=== PATIENT | female | born 1935 | race Caucasian/White ===

== ENCOUNTER 2016-06-03 10:34 | Emergency (ER) | payer MEDICARE, OTHER ==
[2016-06-03 11:33] VITALS: BP 151/91
--- NOTE | 2016-06-03 11:45 | UC ---
Throat Pain/Nasal Jet HPI - HPI Summary HPI Summary: SINUS PAIN AND PRESSURE X 7 DAYS , + NASAL CONGESTION, PND, NO COUGH, NO FEVER, + CHILLS - History of Current Complaint Chief Complaint: UCRespiratory Stated Complaint: SINUS COMPLAINT Time Seen by Provider: 06/03/16 11:17 Hx Obtained From: Patient Onset/Duration: Gradual Onset, Lasting Days - 7, Still Present Cough: None Associated Signs & Symptoms: Positive: Sinus Discomfort, Nasal Discharge. Negative: Wheezing, Hoarseness, Fever - Allergies/Home Medications Allergies/Adverse Reactions: Allergies Allergy/AdvReac Type Severity Reaction Status Date / Time Amoxicillin [From Augmentin] Allergy Mild Rash Verified 06/03/16 11:33 Clarithromycin [From Biaxin] Allergy Mild Rash Verified 06/03/16 11:33 Clavulanic Acid Allergy Mild Rash Verified 06/03/16 11:33 [From Augmentin] Home Medications: Home Medications Pitavastatin Calcium [Livalo] 1 mg PO QPM 06/03/16 [History Confirmed 06/03/16] PMH/Surg Hx/FS Hx/Imm Hx Endocrine History Of: Denies: Diabetes Cardiovascular History Of: Denies: Hypertension, Congestive Heart Failure GI/ History Of: Denies: Renal Disease Psychological History Of: Denies: Anxiety, Depression, Bipolar Disorder, Schizophrenia Cancer History Of: Reports: Lung Cancer - Right lung, Breast Cancer - Bilat 99- Rt, 2012 Lt - Surgical History Surgical History: Yes Surgery Procedure, Year, and Place: Rt lumpectomy- 1998, axillary LN dissection 1998 rt,right lung wedge resection 2011, tonsillectomy, sinus surgery, Left breast lumpectomy 2011 chemo and radiation. 1998 right breast ca with lumpectomy , chemo and radiation - Family History Known Family History: Negative: Diabetes - Social History Alcohol Use: None Substance Use Type: None Smoking Status (MU): Never Smoked Tobacco - Immunization History Most Recent Tetanus Shot: Within 10 years Review of Systems Constitutional: Chills Skin: Negative Eyes: Negative ENT: Ear Ache, Nasal Discharge Respiratory: Negative Cardiovascular: Negative Gastrointestinal: Negative Genitourinary: Negative Motor: Negative All Other Systems Reviewed And Are Negative: Yes Physical Exam Triage Information Reviewed: Yes Appearance: Well-Appearing, No Pain Distress, Well-Nourished Vital Signs: Initial Vital Signs Temp 98.6 F 06/03/16 11:26 Pulse 94 06/03/16 11:26 Resp 20 06/03/16 11:26 BP 151/91 06/03/16 11:26 Pulse Ox 97 06/03/16 11:26 Vital Signs Reviewed: Yes Eyes: Positive: Conjunctiva Clear ENT: Positive: Normal ENT inspection, Hearing grossly normal, Pharyngeal erythema, Nasal congestion, Nasal drainage, TMs normal Neck: Positive: Supple, Nontender, No Lymphadenopathy Respiratory: Positive: Chest non-tender, Lungs clear, Normal breath sounds, No respiratory distress Cardiovascular: Positive: RRR, No Murmur, Pulses Normal Throat Pain/Nasal Course/Dx - Differential Dx/Diagnosis Provider Diagnoses: SINUSITIS Discharge - Discharge Plan Condition: Stable Disposition: HOME Prescriptions: Azithromycin TAB* [Zithromax TAB (Z-ROSE) 250 mg #6 tabs] 2 tab PO .TODAY, THEN 1 DAILY #1 rose Fluticasone Propionate (Nasal) [Flonase Allergy Relief] 50 mcg NA DAILY WITH MEAL #1 bottle Patient Education Materials: Sinusitis (ED) Referrals: Hedler Nielson MD [Primary Care Provider] - If Needed
== END 2016-06-03 12:07 | disposition home or self-care (01) ==
LOC: UCCORT 10:34
DX: J32.9 Chronic sinusitis, unspecified (principal); Z85.3 Personal history of malignant neoplasm of breast; Z85.118 Personal history of other malignant neoplasm of bronchus and lung; Z92.21 Personal history of antineoplastic chemotherapy; Z92.3 Personal history of irradiation; Z88.1 Allergy status to other antibiotic agents
CPT/HCPCS: 99211; G0463

== ENCOUNTER 2016-08-26 09:09 | Emergency (ER) | payer MEDICARE, OTHER ==
[2016-08-26 09:26] VITALS: BP 143/82
--- NOTE | 2016-08-26 09:51 | UC ---
Respiratory Complaint HPI - History of Current Complaint Chief Complaint: UCRespiratory Stated Complaint: SINUS COMPLAINT Time Seen by Provider: 08/26/16 09:43 Hx Obtained From: Patient ?: No Onset/Duration: Sudden Onset, Lasting Days - 3, Worse Since - since yesterday Timing: Constant Severity Initially: Mild Severity Currently: Moderate Character: Cough: Nonproductive Aggravating Factors: Nothing Alleviating Factors: Nothing Associated Signs And Symptoms: Positive: Chills, URI, Nasal Congestion, Hoarseness, Sinus Discomfort. Negative: Dyspnea, Wheezing Related History: Seasonal Allergies - Risk Factors Pulmonary Embolism Risk Factors: Negative Cardiac Risk Factors: Negative Pseudomonas Risk Factors: Negative - Allergies/Home Medications Allergies/Adverse Reactions: Allergies Allergy/AdvReac Type Severity Reaction Status Date / Time Amoxicillin [From Augmentin] Allergy Mild Rash Verified 06/03/16 11:33 Clarithromycin [From Biaxin] Allergy Mild Rash Verified 06/03/16 11:33 Clavulanic Acid Allergy Mild Rash Verified 06/03/16 11:33 [From Augmentin] Home Medications: Home Medications Loratadine [Claritin 10 MG CAP] 10 mg PO DAILY 08/26/16 [History Confirmed 08/26] PMH/Surg Hx/FS Hx/Imm Hx Endocrine History Of: Denies: Diabetes Cardiovascular History Of: Denies: Hypertension, Congestive Heart Failure GI/ History Of: Denies: Renal Disease Psychological History Of: Denies: Anxiety, Depression, Bipolar Disorder, Schizophrenia Cancer History Of: Reports: Lung Cancer - Right lung, Breast Cancer - Bilat 99- Rt, 2011 Lt - Surgical History Surgical History: Yes Surgery Procedure, Year, and Place: Rt lumpectomy- 1998, axillary LN dissection 1998 rt,right lung wedge resection 2011, tonsillectomy, sinus surgery, Left breast lumpectomy 2011 chemo and radiation. 1998 right breast ca with lumpectomy , chemo and radiation - Family History Known Family History: Positive: Hypertension Negative: Cardiac Disease, Diabetes - Social History Occupation: Retired Lives: Alone Alcohol Use: None Substance Use Type: None Smoking Status (MU): Never Smoked Tobacco Have You Smoked in the Last Year: No - Immunization History Most Recent Tetanus Shot: Within 10 years Review of Systems Constitutional: Chills ENT: Nasal Discharge Respiratory: Cough Neurological: Headache All Other Systems Reviewed And Are Negative: Yes Physical Exam Triage Information Reviewed: Yes Appearance: No Pain Distress, Well-Nourished, Ill-Appearing Vital Signs: Initial Vital Signs Temp 98.2 F 08/26/16 09:20 Pulse 104 08/26/16 09:20 Resp 16 08/26/16 09:20 BP 143/82 08/26/16 09:20 Pulse Ox 98 08/26/16 09:20 Vital Signs Reviewed: Yes Eyes: Positive: Conjunctiva Inflamed ENT: Positive: Pharyngeal erythema, TMs normal Neck exam: Normal Respiratory: Positive: Wheezing - expiratory wheeze with cough Cardiovascular Exam: Normal Musculoskeletal Exam: Normal Neurological Exam: Normal Psychological Exam: Normal Skin Exam: Normal UC Diagnostic Evaluation - Laboratory O2 Sat by Pulse Oximetry: 98 Respiratory Course/Dx - Differential Dx/Diagnosis Differential Diagnosis/HQI/PQRI: Asthma, Lower Resp Infection, Sinusitis Provider Diagnoses: Acute URI. Acute sinusitis. Acute bronchospasm Discharge - Discharge Plan Condition: Stable Disposition: HOME Prescriptions: Cefdinir [Cefdinir 300 MG CAP] 300 mg PO BID #20 cap predniSONE TAB* [Deltasone TAB*] 20 mg PO DAILY #18 tab Patient Education Materials: Upper Respiratory Infection (ED), Sinusitis (ED), Cefdinir (By mouth), Bronchospasm (ED), Prednisone (By mouth) Additional Instructions: NASAL SPRAYS AND DROPS: Afrin in the PUMP/ MIST bottle. Tilt your head down and look at the floor while doing a strong sniff with the spray. Decongestant nasal sprays and drops often give dramatic relief from congestion. They are often recommended for patients with sinus infection to assist with sinus drainage. Persons with high blood pressure should consult the doctor before using these nasal sprays. Afrin and Gustavo-Synephrine are common [id number] preparations. They should not be used for more than five days, as "rebound" congestion can occur - - the congestion flares as the drug wears off. A way of dealing with this rebound congestion problem is to medicate only one nostril each time, allowing the other nostril to recover from the medicine' s effects. When you no longer need the drug during the day, spray only one nostril each night. This helps you sleep well without severe rebound congestion. Call the doctor if you develop severe headache, palpitations, or chest pain.
== END 2016-08-26 10:06 | disposition home or self-care (01) ==
LOC: UCCORT 09:09
DX: J06.9 Acute upper respiratory infection, unspecified (principal); J01.90 Acute sinusitis, unspecified; J21.9 Acute bronchiolitis, unspecified; Z88.1 Allergy status to other antibiotic agents; Z85.118 Personal history of other malignant neoplasm of bronchus and lung; Z85.3 Personal history of malignant neoplasm of breast
CPT/HCPCS: 99212; G0463

== ENCOUNTER → 2017-04-12 01:18 | Emergency (ER) | payer MEDICARE, OTHER ==
[~2017-04-12 01:18] MED LIST: Aspirin Low Dose CHEW TAB* 81 MG PO ONE; Enoxaparin(*) 80 MG/0.8 ML SYR SUBCUT ONE; Iohexol 350* (CONTRAST) 500 ML MDV IV ONE; Ketorolac INJ* 15 MG/ML 1 ML VIAL IV PUSH ONE; Morphine INJ* 2 MG/ML 1 ML CARPUJECT IV ONE; Morphine INJ* 2 MG/ML 1 ML SYRINGE (TWO MG - NEW SYRINGE VERSION) ONE; Morphine INJ* 4 MG/ML 1 ML CARPUJECT IV ONE; NS 0.9% 1000 ML* 1,000 ML IV ONE; Ondansetron INJ* 2 MG/ML VIAL IV ONE
[2017-04-12 03:35] LABS: Hematocrit 38 % (35-47); Hemoglobin 12.6 g/dl (12.0-16.0); Mean Corpuscular HGB Conc 33 g/dl (31-36); Mean Corpuscular Hemoglobin 31 pg (27-31); Mean Corpuscular Volume 93 fL (80-97); Mean Platelet Volume 7 um3 (7.4-10.4); Red Blood Count 4.07 10^6/ul (4.0-5.4); Red Cell Distribution Width 15 % (10.5-15); White Blood Count 9.6 10^3/ul (3.5-10.8)
[2017-04-12 03:51] LABS: Albumin 3.9 g/dL (3.2-5.2); Calcium 9.4 mg/dL (8.6-10.3); EGFR African American 88.8 (>60); Globulin 3.3 g/dL (2-4); Magnesium 1.8 mg/dL (1.9-2.7); Potassium 4.4 mmol/L (3.5-5.0); Total Bilirubin 0.5 mg/dL (0.2-1.0); Total Protein 7.2 g/dL (6.4-8.9)
[2017-04-12 04:04] LABS: TSH (Thyroid Stimulating Horm) 1.89 mcIU/mL (0.34-5.60)
--- NOTE | 2017-04-12 05:38 | ED ---
Yfn Gotti Nilda, scribed for Erin Field MD on 04/12/17 at 0317 . HPI Chest Pain - HPI Summary HPI Summary: This patient is an 81 year old F presenting to [facility] accompanied by daughter with a chief complaint of constant severe left chest pain that radiates to shoulder since 1900. Symptoms were present yesterday but worsened today. The patient rates the pain 9/10 in severity. Symptoms aggravated by palpation and movement and alleviated by nothing. Patient denies fever, chills, diaphoresis, N /V, and trauma to area. PMHx includes bilateral breast CA and R-lung CA. PSHx lumpectomy of right lung and bilat breasts. - History of Current Complaint Chief Complaint: EDShoulderClavicleInj Time Seen by Provider: 04/12/17 02:39 Hx Obtained From: Patient Onset/Duration: Started Hours Ago, Still Present Timing: Constant Current Severity: Severe Pain Intensity: 9 Pain Scale Used: 0-10 Numeric Chest Pain Location: Left Lateral Chest Pain Radiates: Yes Chest Pain Radiates To:: Shoulder Character: Sharp/Stabbing Aggravating Factor(s): Movement, Other: - palpation Alleviating Factor(s): Nothing Associated Signs and Symptoms: Positive: Other: - denies fever, chills, diaphoresis, N/V, and trauma to area - Allergy/Home Medications Allergies/Adverse Reactions: Allergies Allergy/AdvReac Type Severity Reaction Status Date / Time Amoxicillin [From Augmentin] Allergy Mild Rash Verified 04/12/17 03:33 Clarithromycin [From Biaxin] Allergy Mild Rash Verified 04/12/17 03:33 Clavulanic Acid Allergy Mild Rash Verified 04/12/17 03:33 [From Augmentin] PMH/Surg Hx/FS Hx/Imm Hx Endocrine/Hematology History: Denies: Hx Diabetes, Hx Systemic Lupus Erythematosus Cardiovascular History: Reports: Other Cardiovascular Problems/Disorders - HYPERLIPIDEMIA - CONTROL WITH MEDICATION Denies: Hx Congestive Heart Failure, Hx Hypertension Respiratory History: Reports: Hx Lung Cancer - Right lung GI History: Denies: Other GI Disorders History: Denies: Hx Dialysis, Hx Renal Disease Musculoskeletal History: Denies: Hx Rheumatoid Arthritis, Other Musculoskeletal History Sensory History: Reports: Hx Contacts or Glasses - READING GLASSES Denies: Hx Hearing Aid Opthamlomology History: Reports: Hx Contacts or Glasses - READING GLASSES Psychiatric History: Denies: Hx Anxiety, Hx Attention Deficit Hyperactivity Disorder, Hx Autism, Hx Eating Disorder, Hx Oppositional Vevay Disorder, Hx Depression, Hx Panic Disorder, Hx Post Traumatic Stress Disorder, Hx Inpatient Treatment, Hx Community Mental Health Tx, Hx Schizophrenia, Hx Bipolar Disorder, Hx Suicide Attempt, Hx Substance Abuse, Other Psychiatric Issues/Disorders - Cancer History Cancer Type, Location and Year: R & L breast, R lung Hx Chemotherapy: Yes - 1998 + [address] chi Hx Radiation Therapy: Yes - 1998 Rt, 2011 Lt - Surgical History Surgery Procedure, Year, and Place: Rt lumpectomy- 1998, axillary LN dissection 1998 rt,right lung wedge resection 2011, tonsillectomy, sinus surgery, Left breast lumpectomy 2011 chemo and radiation. 1998 right breast ca with lumpectomy , chemo and radiation Hx Anesthesia Reactions: No Infectious Disease History: No Infectious Disease History: Reports: Hx Shingles Denies: Hx Clostridium Difficile, Hx Hepatitis, Hx Human Immunodeficiency Virus (HIV), Hx Tuberculosis, Traveled Outside the [place] in Last 30 Days - Family History Known Family History: Positive: Hypertension Negative: Cardiac Disease, Diabetes - Social History Alcohol Use: None Substance Use Type: Reports: None Smoking Status (MU): Never Smoked Tobacco Have You Smoked in the Last Year: No Review of Systems Negative: Fever, Chills, Skin Diaphoresis Positive: Chest Pain Negative: Vomiting, Nausea Positive: Other - left shoulder pain; negative trauma All Other Systems Reviewed And Are Negative: Yes Physical Exam - Summary Physical Exam Summary: GENERAL: Patient is a well-developed and nourished female who is lying comfortable in the stretcher. Patient is not in any acute respiratory distress. HEAD AND FACE: No signs of trauma. No ecchymosis, hematomas or skull depressions. No sinus tenderness. EYES: PERRLA, EOMI x 2, No injected conjunctiva, no nystagmus. EARS: Hearing grossly intact. Ear canals and tympanic membranes are within normal limits. MOUTH: Oropharynx within normal limits. NECK: Supple, trachea is midline, no adenopathy, no JVD, no carotid bruit, no c- spine tenderness, neck with full ROM. CHEST: Symmetric, tenderness at palpation of left chest wall LUNGS: Clear to auscultation bilaterally. No wheezing or crackles. CVS: Regular rate rhythm, tachycardic, S1 and S2 present, no murmurs or gallops appreciated. ABDOMEN: Soft, non-tender. No signs of distention. No rebound no guarding, and no masses palpated. Bowel sounds are normal. EXTREMITIES: FROM in all major joints, no edema, no cyanosis or clubbing. NEURO: Alert and oriented x 3. No acute neurological deficits. Speech is normal and follows commands. SKIN: Dry and warm Triage Information Reviewed: Yes Vital Signs On Initial Exam: Initial Vitals Temp Pulse Resp BP Pulse Ox 98.5 F 119 20 155/96 94 04/12/17 01:37 04/12/17 01:37 04/12/17 01:37 04/12/17 01:37 04/12/17 01:37 Vital Signs Reviewed: Yes Diagnostics - Vital Signs Vital Signs Temp Pulse Resp BP Pulse Ox 04/12/17 01:37 98.5 F 119 20 155/96 94 - Laboratory Result Diagrams: 04/12/17 03:25 04/12/17 03:25 Lab Statement: Any lab studies that have been ordered have been reviewed, and results considered in the medical decision making process. - Radiology CXR Radiology Interpretation Completed By: ED Physician - NAD. - CT CTA Chest CT Interpretation Completed By: Radiologist - CTA Chest, per radiologist, reveals right lower lobe and left lower lobe pulmonary emboli with probable left lower lobe infarct. No saddle embolism. ED Physician has reviewed this report and agrees. - EKG 0238 Cardiac Rate: Tachycardia EKG Rhythm: Sinus Tachycardia - 111 bpm EKG Interpretation: nml axis, nml interval, no acute ischemic change. Re-Evaluation - Re-Evaluation First Eval Re-Evaluation Time: 05:28 Comment: Review lab results with patient and plan to admit. Patient is still in pain. Chest Pain Course/Dx - Course Assessment/Plan: This patient is an 81 year old F presenting to [facility] accompanied by daughter with a chief complaint of constant severe left chest pain that radiates to shoulder since 1900. Symptoms were present yesterday but worsened today. The patient rates the pain 9/10 in severity. Symptoms aggravated by palpation and movement and alleviated by nothing. Patient denies fever, chills, diaphoresis, N/V, and trauma to area. PMHx includes bilateral breast CA and R-lung CA. PSHx lumpectomy of right lung and bilat breasts. Pending EKG and CXR. EKG reveals sinus tachycardia, 111 bpm, nl axis, nl interval, no ischemic changes. CXR reveals NAD. CTA Chest, per radiologist, reveals right lower lobe and left lower lobe pulmonary emboli with probable left lower lobe infarct. No saddle embolism. ED Physician has reviewed this report and agrees. [[id number]] Dr. Warner (hospitalist) accepts pt for admission. Pt is stable and will be admitted with a diagnosis of bilateral PE. - Diagnoses Provider Diagnoses: Bilateral pulmonary embolism - Provider Notifications Discussed Care Of Patient With: Jason Warner - hospitalist Time Discussed With Above Provider: 05:35 Instructed by Provider To: Admit As Inpatient Discharge - Discharge Plan Condition: Stable Disposition: ADMITTED TO [facility] Referrals: Helder Nielson MD [Primary Care Provider] - The documentation as recorded by the Yfn hoover Nilda accurately reflects the service I personally performed and the decisions made by , Erin Field MD.
[2017-04-12 09:35] VITALS: BP 114/61
--- NOTE | 2017-04-12 09:38 | RAD ---
INDICATION: Chest pain COMPARISON: Most recent comparison chest x-rays June 19, 2012 TECHNIQUE: Single AP portable view of the chest was obtained with the patient apparently rotated towards her right. FINDINGS: Image quality is compromised due to the relative inferiority of a portable chest x-ray. There are stable surgical clips overlying the right axilla. The heart and mediastinum exhibit normal size and contour. The lungs are grossly clear. There is no evidence of a large pleural effusion. Visualized bones are normal for the patient's age. IMPRESSION: No radiographic evidence for acute cardiopulmonary abnormality on this portable chest x-ray.
--- NOTE | 2017-04-12 10:38 | RAD ---
INDICATION: Chest and left shoulder pain. COMPARISON: Similar CT of the chest dated March 18, 2017 TECHNIQUE: Axial source images were acquired following the administration of 69 mL of Omnipaque [address] angiographic technique. Coronal and sagittal reconstructed images were constructed and reviewed. FINDINGS: There are nonocclusive filling defects involving the right lower and right middle lobe pulmonary arteries extending into the intermedius segment of the pulmonary artery (axial image 99 through 143). There is no definite thrombus in the right or left mainstem pulmonary arteries. There is a segmental filling defect at the left lower lobe (axial image 124). There is a pleural-based density at the right upper lobe as well as hypoventilatory changes at the bilateral lung bases, worse on the left than the right. The heart is normal in size. There is no evidence of pericardial effusion. There is no evidence of aortic aneurysm or dissection. There is no mediastinal, hilar, or axillary lymphadenopathy. Multilevel degenerative change of the thoracic spine includes loss of intervertebral disc height as well as vacuum disc phenomenon at T12/L1. Limited views of the upper abdomen show no abnormalities. IMPRESSION: 1. Lobar pulmonary embolism involving the right middle and lower lobes as well as segmental pulmonary embolism involving the left lower lobe. 2. Additional chronic and degenerative changes described in the body the report.
--- NOTE | 2017-04-12 11:43 | HP ---
HISTORY AND PHYSICAL: DATE OF ADMISSION: 04/12/17 IDENTIFICATION: An 81-year-old female with a history of breast cancer and lung cancer, no active malignancy. Seen by Dr. Coyne 2 weeks ago for annual followup. CHIEF COMPLAINT: Left-sided shoulder pain. HISTORY OF PRESENT ILLNESS: An 81-year-old female with history of multiple malignancies, but generally has been doing quite well. She had sever URI and bronchitis, had been in bed an chair for 2 weeks. She developed acute left shoulder pain in the afternoon on 04/11/17. By 8:00 p.m., it was a fairly severe pain. She took Advil and it did not go away. Initially thought it was because of how she slept that she moved her shoulder, but then after the Advil failed, she called her daughter. She came in to the emergency room. On presentation, she had a hemoglobin of 12.6 consistent with her baseline, chemistries unremarkable with exception of slightly elevated glucose of 122, creatinine 0.8 and BUN of 20, normal liver function test. Vital signs on presentation, she was afebrile; heart rate of 119, went down to 86; O2 saturation of 94% on presentation, up to 98% on oxygen 2 L; blood pressure 131/ 70. She had a CT angiogram that showed 2 segmental pulmonary emboli, right and left, and small left-sided area of infarction. She got Lovenox 80 mg x1 and her pain is resolved. Overnight, she did well in the emergency room and has been resting comfortably. Denies fevers, chills, shortness of breath, or hemoptysis, and otherwise is feeling well. She walked around the emergency room this morning on room air, has saturation of 92%, no chest pain, no shortness of breath. PAST MEDICAL HISTORY: 1. Bronchitis 3 weeks ago, treated with antibiotics. 2. Hyperlipidemia. 3. Osteoporosis. 4. Left-sided breast cancer, 1998, treated with chemotherapy and radiation as well as lumpectomy and axillary lymph node dissection. 5. Lung cancer, 2011. IIA disease, treated with wedge resection. 6. Left breast cancer, 2011, T1b with lymphovascular invasion associated DCIS. PAST SURGICAL HISTORY: Lung resection, bilateral breast surgery. MEDICATIONS AT HOME: 1. Vitamin D 2000 units daily. 2. Livalo 1 tablet daily. 3. Prednisone 10 mg p.r.n. ALLERGIES: AUGMENTIN and BIAXIN. FAMILY HISTORY: Sister with breast cancer at age 61. No family history of thrombosis. SOCIAL HISTORY: In the emergency room with her daughter. She is , never smoker. No history of drinking. Active and fully functional at home. REVIEW OF SYSTEMS: Constitutional: She had suffered from bronchitis and respiratory symptoms for 3 weeks, sedentary. Allergies/Immunologic: Rash to AUGMENTIN and BIAXIN. HEENT: Negative. Endocrine: Negative but mildly elevated sugar in the emergency room. Hematologic/Lymphatic: No bruising. Breasts: Bilateral breast cancer, has not noted any new masses or lesions. Respiratory: Shoulder pain, but no shortness of breath, cough, hemoptysis. Cardiovascular: No palpitations or chest pain. Gastrointestinal: Eating reasonably well recently. : She had incontinence with coughing, with a recent URI symptoms. Musculoskeletal: Negative. Skin: Negative. Neurologic: Negative. Psychiatric: Negative. PHYSICAL EXAMINATION GENERAL: No distress. VITAL SIGNS: Temperature 98.5, BP 131/70, pulse 96, respirations 18, O2 sat 98 % on 2 L, 95% on room air at rest, 92% on room air with exertion. HEENT: Mucosa moist. No lesions. No cervical or supraclavicular lymphadenopathy. LUNGS: Clear to auscultation bilaterally. No pain with deep inspiration. HEART: Regular rate and rhythm. S1, S2. No murmurs, rubs, or gallops. ABDOMEN: Nontender, nondistended. Good bowel sounds. No hepatosplenomegaly. EXTREMITIES: Good pulses x4. No edema. NEUROLOGIC: Grossly nonfocal. DIAGNOSTIC STUDIES/LAB DATA: As noted above. CT scan was personally reviewed. ASSESSMENT AND PLAN: An 81-year-old female with remote history of both breast and lung cancer, but has been cancer free of late. Presents with a pulmonary embolus that occurred following episode of severe bronchitis and long periods of immobilization secondary to fatigue. It is a pulmonary embolus with a moderate transient risk factor. 1. At this time, she is hemodynamically stable and improved symptoms with one shot of Lovenox. I think it is reasonable for her to be treated as an outpatient. I am going to send her home this morning on Xarelto 15 mg p.o. b.i.d with food. We will follow up in 24 hours in the clinic to reevaluate her chest pain and breathing. She has Lovenox around 5:00 a.m. She will take her first Xarelto at lunch and then the second one at bedtime tonight. 2. She will continue all other medications unchanged, but do not take any more p.r.n. Advil. Tylenol is okay for pain. 3. We discussed that this pulmonary embolus will heal over 6 weeks to 3 months. The duration of anticoagulation can be significantly longer, as she is at risk for additional thrombi. 4. No evidence of recurrent cancer at this time, although the pulmonary embolus make us suspicious. On the CT scan of her chest, there is no evidence of lung cancer, will send her for an A/P CT as an outpatient. 5. She will call me after discharge with any additional questions or concerns, [phone]. [id number]/[facility] #: [id number] TOM
== END | disposition home or self-care (01) ==
LOC: ED 01:18
DX: I26.99 Other pulmonary embolism without acute cor pulmonale (principal); R50.9 Fever, unspecified
CPT/HCPCS: 36415; 71010; 71275; 80053; 82550; 82553; 83605; 83735; 83880; 84443; 84484; 85025; 85379; 85610; 85730; 93005; 96374; 96375; 99282; A9270-GY; J1650; J1885; J2270; J2405; Q9967

== ENCOUNTER 2019-07-23 08:09 | Day surgery (SDC) | payer MEDICARE, OTHER ==
[~2019-07-23 08:09] MED LIST changes: +Acetaminophen TAB* 325 MG PO PRN; -Aspirin Low Dose CHEW TAB* 81 MG PO ONE; +Buffered Lidocaine 1% SYRIN* 1 ML/SYRINGE INTRADERM ONE; -Enoxaparin(*) 80 MG/0.8 ML SYR SUBCUT ONE; -Iohexol 350* (CONTRAST) 500 ML MDV IV ONE; -Ketorolac INJ* 15 MG/ML 1 ML VIAL IV PUSH ONE; -Morphine INJ* 2 MG/ML 1 ML CARPUJECT IV ONE; -Morphine INJ* 2 MG/ML 1 ML SYRINGE (TWO MG - NEW SYRINGE VERSION) ONE; -Morphine INJ* 4 MG/ML 1 ML CARPUJECT IV ONE; -NS 0.9% 1000 ML* 1,000 ML IV ONE; -Ondansetron INJ* 2 MG/ML VIAL IV ONE
[2019-07-23] MEDS ORDERED: Midazolam* 1 MG/ML 2 ML VIAL (2 MG) ONE ×2 (08:50→09:24)
[2019-07-23] MEDS ORDERED: Phenylephrine OPHTH SOL 2.5%* 2 ML ONE (09:14)
[2019-07-23] MEDS ORDERED: Ketorolac 0.5% OPHTH (NF) 0.5 % 5 ML BTL ONE (09:14)
[2019-07-23] MEDS ORDERED: Cyclopentolate 1% OPTH.SOL* 2 ML BTL ONE (09:14)
[2019-07-23] MEDS ORDERED: Povidone Iodine 5% OPTH* 30 ML BTL ONE (09:14)
[2019-07-23] MEDS ORDERED: Neomycin/Polymy/Dex OPTH.SUSP* MAXITROL 0.1% 5 ML ONE (09:14)
[2019-07-23] MEDS ORDERED: Lidocaine 1% MPF ** 5 ML VIAL ONE (09:14)
[2019-07-23] MEDS ORDERED: Lidocaine 2% w/ EPI 1:200,000* 20 ML SDV VIAL ONE (09:14)
[2019-07-23] MEDS ORDERED: Proparacaine 0.5% OPHTH.SOL* 15 ML BTL ONE (09:14)
[2019-07-23] MEDS ORDERED: acetaZOLAMIDE TAB* 250 MG ONE (09:14)
[2019-07-23 10:05] VITALS: BP 127/74
--- NOTE | 2019-07-23 12:47 | OP ---
DATE OF OPERATION: 07/23/2019. DATE OF : 1935. SURGEON: Moises Villasenor M.D. PREOPERATIVE DIAGNOSIS: Cataract right eye. POSTOPERATIVE DIAGNOSIS: Cataract right eye. OPERATIVE PROCEDURE: Extracapsular cataract extraction with intraocular lens implant right eye. PROCEDURE: The patient was brought to the operating room after being given 1/2% Alcaine with epineph rine drops in the preoperative area. The eye was prepped and draped in the usual sterile fashion. S terile drape and eyelid speculum were placed. Again, topical 1/2% Alcaine with epinephrine was given . A paracentesis incision was made at the 9 o'clock position with the No.75 blade. Clear cornea inc ision 2.2 x 2.2-mm was created at the 12 o'clock position starting at the anterior limbus using the 2 .2-mm keratome. The anterior chamber was irrigated with 0.4 mL of 1% non-preservative intracameral l idocaine and filled with DisCoVisc. A capsulorrhexis was completed using the cystotome and the Utrat a forceps. Hydrodissection was performed with balanced salt solution. The lens nucleus was removed w ith the Phacoemulsification handpiece without incident. Cortex was removed with the irrigation-aspir ation handpiece. The capsular bag was re-inflated using DisCoVisc and an SN60WF 23.5 implant was ins erted with the shooter. The irrigation-aspiration handpiece was used to remove all residual DisCoVis c. The eye was refilled with balanced salt solution and the wound checked and found to be watertight . Topical Maxitrol drops were given. [id number]/[facility] #: [id number]
== END 2019-07-23 09:55 | disposition home or self-care (01) ==
LOC: OREAST 08:09
PROVIDERS: ATTEND Specialist
DX: H25.811 Combined forms of age-related cataract, right eye (principal); H43.813 Vitreous degeneration, bilateral; Z85.3 Personal history of malignant neoplasm of breast; Z85.118 Personal history of other malignant neoplasm of bronchus and lung; E78.5 Hyperlipidemia, unspecified
CPT/HCPCS: A9270-GY; J2250; V2632

== ENCOUNTER 2019-07-30 10:46 | Day surgery (SDC) | payer MEDICARE, OTHER ==
[~2019-07-30 10:46] MED LIST changes: +Cyclopentolate 1% OPTH.SOL* 2 ML BTL ONE; +Ketorolac 0.5% OPHTH (NF) 0.5 % 5 ML BTL ONE; +Lidocaine 1% MPF ** 5 ML VIAL ONE; +Lidocaine 2% w/ EPI 1:200,000* 20 ML SDV VIAL ONE; +Neomycin/Polymy/Dex OPTH.SUSP* MAXITROL 0.1% 5 ML ONE; +Phenylephrine OPHTH SOL 2.5%* 2 ML ONE; +Povidone Iodine 5% OPTH* 30 ML BTL ONE; +Proparacaine 0.5% OPHTH.SOL* 15 ML BTL ONE; +acetaZOLAMIDE TAB* 250 MG ONE
[2019-07-30 14:13] VITALS: BP 169/75
--- NOTE | 2019-07-30 17:00 | OP ---
DATE OF OPERATION: 07/30/2019 - [facility] DATE OF : 1935. SURGEON: Moises Villasenor M.D. PREOPERATIVE DIAGNOSIS: Cataract left eye. POSTOPERATIVE DIAGNOSIS: Cataract left eye. OPERATIVE PROCEDURE: Extracapsular cataract extraction with intraocular lens implant left eye. DESCRIPTION OF PROCEDURE: The patient was brought to the operating room after being given 1/2% Alcaine with epinephrine drops in the preoperative area. The eye was prepped and draped in the usual sterile fashion. Sterile drape and eyelid speculum were placed. Again, topical 1/2% Alcaine with epinephrine was given. A paracentesis incision was made at the 3 o'clock position with the No.75 blade. Clear cornea incision 2.2 x 2.2-mm was created at the 6 o'clock position starting at the anterior limbus using the 2.2-mm keratome. The anterior chamber was irrigated with 0.4 mL of 1% non-preservative intracameral lidocaine and filled with DisCoVisc. A capsulorrhexis was completed using the cystotome and the Utrata forceps. Hydrodissection was performed with balanced salt solution. The lens nucleus was removed with the Phacoemulsification handpiece without incident. Cortex was removed with the irrigation-aspiration handpiece. The capsular bag was re-inflated using DisCoVisc and an [id number] 24 implant was inserted with the shooter. The irrigation-aspiration handpiece was used to remove all residual DisCoVisc. The eye was refilled with balanced salt solution and the wound checked and found to be watertight. Topical Maxitrol drops were given. [id number]/[facility] #: [id number] [facility]
== END 2019-07-30 14:05 | disposition home or self-care (01) ==
LOC: OREAST 10:46
PROVIDERS: ATTEND Specialist
DX: H25.812 Combined forms of age-related cataract, left eye (principal); Z85.3 Personal history of malignant neoplasm of breast; Z85.118 Personal history of other malignant neoplasm of bronchus and lung; Z96.1 Presence of intraocular lens; H43.813 Vitreous degeneration, bilateral; Z86.718 Personal history of other venous thrombosis and embolism; Z79.01 Long term (current) use of anticoagulants; Z86.711 Personal history of pulmonary embolism; Z88.1 Allergy status to other antibiotic agents
CPT/HCPCS: A9270-GY; V2632